=== PATIENT | male | born 2000 | race Hispanic/Latino ===

== ENCOUNTER 2020-08-16 20:03 | Emergency (ER) | payer OTHER ==
[~2020-08-16] VITALS: Ht 180.3 cm; Wt 86.8 kg
[2020-08-16] MEDS ORDERED: BOOSTRIX/ADACEL VACCINE (DIPHTH/PERTUSS/ACELL/TETANUS) 0.5ML SYR IM ONE (21:15)
[2020-08-16] MEDS ORDERED: LIDOCAINE 1% MDV 20ML VIAL INFIL ONE (21:30)
--- NOTE | 2020-08-16 22:21 | REPVR ---
PROCEDURE INFORMATION: Exam: XR Left Finger(s) Exam date and time: 08/16/20 (9:18pm) Age: 19 years old Clinical indication: Pain. Laceration to proximal left 4th finger. TECHNIQUE: Imaging protocol: XR Left fingers Views: Minimum 2 views COMPARISON: No relevant prior studies available FINDINGS: No acute fracture nor dislocation. A faint rounded density (5 mm size) is noted in the soft tissues adjacent to the distal portion of the left 4th proximal phalanx. IMPRESSION: No acute osseous pathology. A faint rounded density (5 mm size) is noted in the soft tissues adjacent to the distal portion of the left 4th proximal phalanx. This may represent an externally applied marker, to indicate the area of concern. Clinical correlation is needed. Electronically signed by: Kirstie Mendoza On 08/16/2020 22:21:46 PM
--- NOTE | 2020-08-16 23:11 | REPVR ---
PROCEDURE INFORMATION: Exam: XR Left Finger(s) Exam date and time: 08/16/20 (10:50pm) Age: 19 years old Clinical indication: Possible foreign body TECHNIQUE: Imaging protocol: XR Left fingers Views: Minimum 2 views COMPARISON: CR Fingers LEFT of 08/16/20 (9:18pm) FINDINGS: Comparison is made with plain films of the left 4th digit done approx. 90 minutes ago. No acute fracture nor dislocation. Previously noted small rounded faint opacity (5 mm size), in the soft tissues of the left 4th finger, is no longer visualized. At this time, no radiodense foreign body material is identified. IMPRESSION: No acute findings. No radiodense foreign body material is identified on the current films. Electronically signed by: Kirstie Mendoza On 08/16/2020 23:11:44 PM
[2020-08-16] MEDS ORDERED: NEOSPORIN OINT 0.9 GM PKT TOP ONE (23:15)
[2020-08-16 23:38] VITALS: BP 132/76
--- NOTE | 2020-08-19 11:14 | ED PDOC ---
Post-Departure Follow-Up left finger xray faxed to [facility] for fu Herminia Wallace MD Aug 19, 2020 11:14
== END 2020-08-16 23:40 | disposition home or self-care (01) ==
LOC: M ED 20:03
DX: S61.215A Laceration without foreign body of left ring finger without damage to nail, initial encounter (principal); W26.0XXA Contact with knife, initial encounter; Y92.019 Unspecified place in single-family (private) house as the place of occurrence of the external cause; Y93.G1 Activity, food preparation and clean up; Y99.9 Unspecified external cause status; F17.200 Nicotine dependence, unspecified, uncomplicated